=== PATIENT | female | born 1985 | race Caucasian/White ===

== ENCOUNTER 2019-08-15 10:20 | Emergency (ER) | payer BC ==
[~2019-08-15] VITALS: Ht 160 cm; Wt 66.7 kg
[2019-08-15] MEDS ORDERED: DEXT 5%/0.45% NACL 1000ML 1,000 ML IV ONE (10:26)
[2019-08-15] MEDS ORDERED: METOPROLOL TARTRATE 5MG/5ML VIAL IV ONE (10:30)
[2019-08-15] MEDS ORDERED: RISP05 PO (10:39)
[2019-08-15] MEDS ORDERED: KETOROLAC 15MG/ML VIAL IV ONE (10:45)
[2019-08-15] MEDS ORDERED: LORAZEPAM 2MG/ML CPJ IV ONE ×2 (10:45→12:15)
[2019-08-15] MEDS ORDERED: ONDANSETRON HCL 4MG/2ML INJ IV ONE (10:45)
[2019-08-15 11:10] LABS: BASOPHILS % 0.5 % (0.0-2.0); EOSINOPHILS % 1.2 % (0.0-5.0); HEMATOCRIT. 41.1 % (36.0-48.0); HEMOGLOBIN. 14.2 g/dL (12.0-16.0); LYMPHOCYTES % 22.7 % (20.0-50.0); MEAN CORPUSCULAR HEMOGLOBIN 32.8 pg (28.0-32.0); MEAN CORPUSCULAR VOLUME 94.8 fL (81.0-99.0); MEAN PLATELET VOLUME 9.9 fl (7.4-10.4); MONOCYTES % 5.9 % (2.0-8.0); NEUTROPHILS % 69.7 % (40.0-76.0); PLATELET 209 x1000/uL (130-400); RED BLOOD CELL COUNT 4.34 mill/uL (4.2-5.4)
[2019-08-15 11:15] LABS: CHLORIDE 105 mEq/L (98-107)
[2019-08-15 11:22] LABS: PHOSPHORUS 2.6 mg/dL (2.5-4.9)
[2019-08-15 11:25] LABS: HCG SCREEN NEGATIVE; T4 FREE 1.02 ng/dL (0.76-1.46)
[2019-08-15 12:15] LABS: *AMPHETAMINES SCREEN URINE NEGATIVE (NEGATIVE); *BARBITURATES SCREEN URINE NEGATIVE (NEGATIVE); *BENZODIAZEPINES SCREEN URINE NEGATIVE (NEGATIVE); *COCAINE SCREEN URINE NEGATIVE (NEGATIVE)
[2019-08-15] MEDS ORDERED: METOCLOPRAMIDE HCL 10MG/2ML VIAL IV ONE (12:15)
[2019-08-15] MEDS ORDERED: MORPHINE SULFATE 4 MG/ML CPJ (NOT FOR IM USE) IV ONE (12:15)
[2019-08-15 12:16] LABS: CANNABINOID URINE SCREEN NEGATIVE (NEGATIVE); METHADONE URINE SCREEN NEGATIVE (NEGATIVE); OPIATES URINE SCREEN NEGATIVE (NEGATIVE); PHENCYCLIDINE URINE SCREEN NEGATIVE (NEGATIVE)
[2019-08-15 12:39] VITALS: BP 122/82
== END 2019-08-15 12:52 | disposition home or self-care (01) ==
LOC: ER 10:28 → CANBEDREQ 15:55 → SUPCPDRO 08-17 16:24
DX: G43.909 Migraine, unspecified, not intractable, without status migrainosus (principal); R00.2 Palpitations; R00.0 Tachycardia, unspecified; R03.0 Elevated blood-pressure reading, without diagnosis of hypertension; F41.9 Anxiety disorder, unspecified
CPT/HCPCS: 36415; 71045; 80053; 80305; 82384; 82570; 83690; 83735; 83880; 84100; 84439; 84443; 84484; 84703; 85025; 85379; 93005; 96374; 96375; 96376; 99285; J1885; J2060; J2270; J2405; J2765; J3490; 96365; 96366